=== PATIENT | female | born 1935 | race Caucasian/White ===

== ENCOUNTER → 2016-11-16 | Outpatient (CLI) | payer OTHER | LOC: HYPER 06:59 | DX: L89.312 Pressure ulcer of right buttock, stage 2 (principal); L89.322 Pressure ulcer of left buttock, stage 2; M54.5 Low back pain; F03.90 Unspecified dementia, unspecified severity, without behavioral disturbance, psychotic disturbance, mood disturbance, and anxiety; Z87.891 Personal history of nicotine dependence ==

== ENCOUNTER → 2016-12-21 | Outpatient (CLI) | payer OTHER | LOC: HYPER 07:04 | DX: L89.312 Pressure ulcer of right buttock, stage 2 (principal); L89.322 Pressure ulcer of left buttock, stage 2; M54.5 Low back pain; J44.9 Chronic obstructive pulmonary disease, unspecified; F41.9 Anxiety disorder, unspecified; F03.90 Unspecified dementia, unspecified severity, without behavioral disturbance, psychotic disturbance, mood disturbance, and anxiety; Z87.891 Personal history of nicotine dependence; Z90.710 Acquired absence of both cervix and uterus; Z96.653 Presence of artificial knee joint, bilateral; Z96.643 Presence of artificial hip joint, bilateral ==

== ENCOUNTER → 2017-02-01 | Outpatient (CLI) | payer OTHER | LOC: HYPER 07:40 | DX: L97.421 Non-pressure chronic ulcer of left heel and midfoot limited to breakdown of skin (principal); L89.312 Pressure ulcer of right buttock, stage 2; L89.322 Pressure ulcer of left buttock, stage 2; M51.36 Other intervertebral disc degeneration, lumbar region; F03.90 Unspecified dementia, unspecified severity, without behavioral disturbance, psychotic disturbance, mood disturbance, and anxiety; Z87.891 Personal history of nicotine dependence; Z90.710 Acquired absence of both cervix and uterus; Z96.653 Presence of artificial knee joint, bilateral; Z96.643 Presence of artificial hip joint, bilateral ==

== ENCOUNTER → 2017-02-15 | Outpatient (CLI) | payer OTHER | LOC: HYPER 07:01 | DX: L89.322 Pressure ulcer of left buttock, stage 2 (principal); L89.312 Pressure ulcer of right buttock, stage 2; L97.421 Non-pressure chronic ulcer of left heel and midfoot limited to breakdown of skin; M51.36 Other intervertebral disc degeneration, lumbar region; F03.90 Unspecified dementia, unspecified severity, without behavioral disturbance, psychotic disturbance, mood disturbance, and anxiety; Z87.891 Personal history of nicotine dependence; Z96.653 Presence of artificial knee joint, bilateral; Z90.710 Acquired absence of both cervix and uterus; Z96.643 Presence of artificial hip joint, bilateral ==

== ENCOUNTER → 2017-03-01 | Outpatient (CLI) | payer OTHER | LOC: HYPER 06:59 | DX: L97.421 Non-pressure chronic ulcer of left heel and midfoot limited to breakdown of skin (principal); L89.322 Pressure ulcer of left buttock, stage 2; M51.36 Other intervertebral disc degeneration, lumbar region; F03.90 Unspecified dementia, unspecified severity, without behavioral disturbance, psychotic disturbance, mood disturbance, and anxiety; Z90.710 Acquired absence of both cervix and uterus; Z87.891 Personal history of nicotine dependence ==

== ENCOUNTER → 2017-04-05 | Outpatient (CLI) | payer OTHER | LOC: HYPER 07:35 | DX: L89.322 Pressure ulcer of left buttock, stage 2 (principal); L89.312 Pressure ulcer of right buttock, stage 2; L97.421 Non-pressure chronic ulcer of left heel and midfoot limited to breakdown of skin; M51.36 Other intervertebral disc degeneration, lumbar region; J44.9 Chronic obstructive pulmonary disease, unspecified; F03.90 Unspecified dementia, unspecified severity, without behavioral disturbance, psychotic disturbance, mood disturbance, and anxiety; Z87.891 Personal history of nicotine dependence ==